=== PATIENT | female | born 1970 | race Caucasian/White ===

== ENCOUNTER → 2017-03-24 | Outpatient (CLI) | payer BC | LOC: RAD 11:31 | DX: M79.602 Pain in left arm (principal); M75.102 Unspecified rotator cuff tear or rupture of left shoulder, not specified as traumatic ==

== ENCOUNTER 2017-04-21 11:30 | Outpatient (RCR) | payer BC | END 2017-04-21 12:00 | disposition home or self-care (01) | LOC: PT 11:30 | DX: S46.012A Strain of muscle(s) and tendon(s) of the rotator cuff of left shoulder, initial encounter (principal) ==

== ENCOUNTER → 2017-04-27 | Outpatient (CLI) | payer BC | LOC: RAD 07:37 | DX: S43.492A Other sprain of left shoulder joint, initial encounter (principal); X58.XXXA Exposure to other specified factors, initial encounter; M75.82 Other shoulder lesions, left shoulder; M24.212 Disorder of ligament, left shoulder ==

== ENCOUNTER → 2018-08-15 | Outpatient (CLI) | payer BC | LOC: LAB 08:22 | DX: Z12.39 Encounter for other screening for malignant neoplasm of breast (principal); Z00.00 Encounter for general adult medical examination without abnormal findings ==

== ENCOUNTER → 2018-08-16 | Outpatient (CLI) | payer BC ==
[2018-08-15 08:46] LABS: BASO # 0.1 (0.02-0.10); EOS # 0.1 (0.04-0.40); EOS % 2.2 % (1.0-5.0); HEMATOCRIT 40.9 % (37.0-47.0); HEMOGLOBIN 13.3 g/dL (12.5-16.0); LYMPH# 1.8 (1.50-4.00); MEAN CELL VOLUME 93 fl (78-100); MEAN CORPUSCULAR HEMOGLOBIN 30 pg (27-31); MEAN CORPUSCULAR HGB CONC 33 g/dL (33-37); MEAN PLATELET VOLUME 11.1 fl (7.4-10.4); MONO # 0.5 (0.20-0.80); NEU # 2.3 (1.40-6.50); PLATELET COUNT 199 K/mm3 (130-400); RED BLOOD COUNT 4.41 M/mm3 (4.10-5.30); WHITE BLOOD COUNT 4.7 K/mm3 (4.8-10.8)
[2018-08-15 08:54] LABS: POTASSIUM 3.9 mmol/L (3.6-5.0); TOTAL BILIRUBIN 1.3 mg/dL (0.2-1.3); TOTAL PROTEIN 6.8 g/dL (6.3-8.2)
== END ==
LOC: MAMMO 11:30
PROVIDERS: Physician Assistant
DX: Z12.31 Encounter for screening mammogram for malignant neoplasm of breast (principal); N63.41 Unspecified lump in right breast, subareolar; Z00.00 Encounter for general adult medical examination without abnormal findings

== ENCOUNTER → 2018-08-24 | Outpatient (CLI) | payer BC | LOC: MAMMO 07:36 | DX: N60.01 Solitary cyst of right breast (principal) ==

== ENCOUNTER → 2018-09-04 | Outpatient (CLI) | payer BC | LOC: RAD 07:07 | DX: D24.1 Benign neoplasm of right breast (principal) | CPT/HCPCS: 15990; A4648 ==

== ENCOUNTER → 2020-01-24 | Outpatient (CLI) | payer BC | LOC: MAMMO 08:22 | DX: Z12.31 Encounter for screening mammogram for malignant neoplasm of breast (principal); N64.9 Disorder of breast, unspecified ==

== ENCOUNTER → 2021-04-15 | Outpatient (CLI) | payer BC ==
[2021-04-15 09:25] LABS: BASO # 0.03 (0.02-0.10); EOS # 0.12 (0.04-0.40); EOS % 2.4 % (1.0-5.0); HEMATOCRIT 41.4 % (37.0-47.0); HEMOGLOBIN 13.3 g/dL (12.5-16.0); LYMPH# 1.83 (1.50-4.00); MEAN CELL VOLUME 92 fl (78-100); MEAN CORPUSCULAR HEMOGLOBIN 30 pg (27-31); MEAN CORPUSCULAR HGB CONC 32 g/dL (33-37); MEAN PLATELET VOLUME 10.6 fl (7.4-10.4); NEU # 2.64 (1.40-6.50); PLATELET COUNT 174 K/mm3 (130-400); RED BLOOD COUNT 4.49 M/mm3 (4.10-5.30); RED CELL DISTRIBUTION WIDTH 13.3 % (11.5-14.5)
[2021-04-15 09:32] LABS: POTASSIUM 4.3 mmol/L (3.5-5.1)
[2021-04-15 09:33] LABS: CALCIUM 9.6 mg/dL (8.3-10.5)
[2021-04-15 09:35] LABS: TOTAL PROTEIN 6.7 g/dL (6.4-8.3)
[2021-04-15 22:52] LABS: FOLLICLE STIMULATING HORMONE 87.9 mIU/mL (()); LUTENIZING HORMONE 43.7 mIU/mL (())
== END ==
LOC: LAB 09:11
PROVIDERS: Physician Assistant
DX: Z13.220 Encounter for screening for lipoid disorders (principal); Z13.29 Encounter for screening for other suspected endocrine disorder; R53.83 Other fatigue; N95.1 Menopausal and female climacteric states; K90.9 Intestinal malabsorption, unspecified

== ENCOUNTER → 2021-04-30 | Outpatient (CLI) | payer BC | LOC: MAMMO 08:21 | DX: Z12.31 Encounter for screening mammogram for malignant neoplasm of breast (principal) ==

== ENCOUNTER → 2021-06-08 | Day surgery (SDC) | payer BC | END | disposition home or self-care (01) | LOC: MSO 07:15 | DX: Z12.11 Encounter for screening for malignant neoplasm of colon (principal) | CPT/HCPCS: 00812; J2704; J3010; J7120 ==

== ENCOUNTER → 2022-03-08 | Outpatient (CLI) | payer BC | LOC: LAB 08:52 | DX: U07.1 COVID-19 (principal) ==

== ENCOUNTER 2024-01-11 14:47 | Emergency (ER) | payer BC ==
[~2024-01-11] VITALS: Ht 177.8 cm; Wt 99.0 kg
[2024-01-11 15:07] LABS: BASO # 0.03 K/mm3 (0.02-0.10); EOS # 0.22 K/mm3 (0.04-0.40); EOS % 3.1 % (1.0-5.0); HEMATOCRIT 41.5 % (37.0-47.0); HEMOGLOBIN 13.2 g/dL (12.5-16.0); LYMPH# 1.66 K/mm3 (1.50-4.00); MEAN CELL VOLUME 92 fl (78-100); MEAN CORPUSCULAR HEMOGLOBIN 29 pg (27-31); MEAN CORPUSCULAR HGB CONC 32 g/dL (33-37); MEAN PLATELET VOLUME 10.4 fl (7.4-10.4); MONO # 0.52 K/mm3 (0.20-0.80); PLATELET COUNT 202 K/mm3 (130-400); RED BLOOD COUNT 4.52 M/mm3 (4.10-5.30); RED CELL DISTRIBUTION WIDTH 13.3 % (11.5-14.5)
[2024-01-11 15:14] LABS: ALBUMIN 4.2 g/dL (3.5-5.0); CALCIUM 9.8 mg/dL (8.3-10.5)
[2024-01-11 15:15] LABS: GLUCOSE 100 mg/dL (65-105); SODIUM 141 mmol/L (136-145); TOTAL PROTEIN 7.2 g/dL (6.4-8.3)
[2024-01-11 15:18] LABS: CARBON DIOXIDE 23 mmol/L (22-29)
[2024-01-11 15:19] LABS: TOTAL BILIRUBIN 0.9 mg/dL (0.2-1.2)
[2024-01-11 15:22] LABS: AST-SGOT 19 U/L (5-34)
[2024-01-11 15:23] LABS: ALT/SGPT 17 U/L (0-55)
[2024-01-11 15:24] LABS: LIPASE 39 U/L (8-78)
[2024-01-11 15:27] LABS: D-DIMER 1.39 mg/L FEU (0.15-0.50)
[2024-01-11 15:34] LABS: TROPONIN-I < 0.030 ng/mL (0.00-0.033)
[2024-01-11] MEDS ORDERED: Iohexol 350 - 100 ML VIAL IV ONE (15:43)
[2024-01-11 16:50] VITALS: BP 120/73
== END 2024-01-11 16:50 | disposition home or self-care (01) ==
LOC: ED 14:47
PROVIDERS: Family Medicine
DX: K76.9 Liver disease, unspecified (principal); R06.02 Shortness of breath; R79.89 Other specified abnormal findings of blood chemistry
CPT/HCPCS: Q9967

== ENCOUNTER → 2024-01-18 | Outpatient (CLI) | payer BC | LOC: MAMMO 08:43 | DX: Z12.31 Encounter for screening mammogram for malignant neoplasm of breast (principal) ==

== ENCOUNTER → 2024-01-31 | Outpatient (CLI) | payer BC | LOC: RAD 06:57 | DX: N60.01 Solitary cyst of right breast (principal) ==

== ENCOUNTER → 2024-02-01 | Outpatient (CLI) | payer BC ==
[~2024-02-01] MED LIST: Iohexol 300 - 100 ML VIAL IV ONE
== END ==
LOC: RAD 09:50
DX: K76.89 Other specified diseases of liver (principal); K38.8 Other specified diseases of appendix
CPT/HCPCS: Q9967